=== PATIENT | male | born 1990 | race Two or more races ===

== ENCOUNTER 2021-06-28 14:10 | Emergency (ER) | payer SELFPAY ==
[~2021-06-28] VITALS: Ht 185.4 cm; Wt 74.4 kg
[2021-06-28 14:18] VITALS: BP 134/90
[2021-06-28] MEDS ORDERED: KETOROLAC 30 MG/ML VIAL IM ONE (14:25)
[2021-06-28] MEDS ORDERED: LIDOCAINE MPF 1% 10 MG/ML VIAL INJ ONE (14:25)
--- NOTE | 2021-06-28 15:00 | NUR ---
PT C/O COCCYX PAIN X 3 DAYS. NO MEDS TAKEN. IN ED, VSS. WITH ERYTHEMA AND ABSCESS ON MEDIAL SUPERIOR ASPECT OF BUTTOCKS. ERMD MADE AWARE OF PT STATUS. MEDHX: DENIES MEDS: DENIES NKA
[2021-06-28] MEDS ORDERED: CEPH-588 PO (15:07)
[2021-06-28] MEDS ORDERED: NAPR-54 PO (15:07)
[2021-06-28 15:21] VITALS: BP 134/90
--- NOTE | 2021-06-28 15:21 | NUR ---
Patient discharged with v/s stable. Written and verbal after care instructions given and explained. Patient alert, oriented and verbalized understanding of instructions. Ambulatory with steady gait. All questions addressed prior to discharge. ID band removed. Patient advised to follow up with PMD. Rx of NAPROXEN, CEPHALEXIN given. Patient educated on indication of medication including possible reaction and side effects. Opportunity to ask questions provided and answered.
== END 2021-06-28 15:20 | disposition home or self-care (01) ==
LOC: MED 14:10
DX: L05.91 Pilonidal cyst without abscess (principal)
CPT/HCPCS: 10080; 96372; 99283; J1885; J2001; 10081